=== PATIENT | female | born 1980 | race American Indian/Alaskan Native ===

== ENCOUNTER 2017-09-26 11:29 | Emergency (ER) | payer OTHER ==
[2017-09-26 12:34] LABS: Basophils % (Auto) 0.5 % (0.0-1.8); Eosinophils % (Auto) 0.6 % (0.0-4.3); Hematocrit 34.5 % (30.3-42.9); Hemoglobin 10.8 gm/dl (10.1-14.3); Lymphocytes % (Auto) 38.3 % (13.4-35.0); Mean Corpuscular HGB Conc 31 % (30-34); Mean Corpuscular Volume 78 fl (79-97); Monocytes # (Auto) 0.6 K/mm3 (0.0-0.8); Monocytes % (Auto) 12.1 % (0.0-7.3); Platelet Count 240 K/mm3 (140-440); Red Blood Count 4.42 M/mm3 (3.65-5.03); Red Cell Distribution Width 15.4 % (13.2-15.2)
[2017-09-26 12:40] LABS: Mean Corpuscular Hemoglobin 25 pg (28-32)
[2017-09-26 13:03] LABS: Bacteria,Urine 1+ /HPF (Negative); Bilirubin,Urine NEG (Negative); Blood,Urine LG (Negative); Mucus,Urine 3+ /HPF; Nitrite,Urine NEG (Negative); Urobilinogen,Urine < 2.0 mg/dL (<2.0)
[2017-09-26 13:13] LABS: Color,Urine Red (Yellow); RBC,Urine > 182.0 /HPF (0.0-6.0)
[2017-09-26] MEDS ORDERED: TORADOL IM ONE (13:23)
--- NOTE | 2017-09-26 15:23 | Ultrasound Report ---
FINAL REPORT PROCEDURE: US PELVIC COMPLETE TECHNIQUE: Real-time transabdominal sonography in multiple planes of pelvis was performed with image documentation. This examination was performed without Doppler. Vascular abnormalities, including ovarian torsion, will not be detectable without Doppler evaluation. CPT 62824 HISTORY: heavy vag bleeding COMPARISON: No prior studies are available for comparison. FINDINGS: UTERUS Size: 10.1 cm. Endometrial thickness: 11 mm. Complex fluid filled endometrial and endocervical canal.. Heterogeneous mass in the endocervical canal measures 5.2 x 1.4 centimeters possible clot. Orientation: anteverted. Cervix: Normal. Fibroids/masses: None. RIGHT Ovary: 3.7 x 2.6 cm. Appearance: Normal flow. 2.1 centimeter cyst right ovary. LEFT Ovary: 6.0 x 5.8 cm including a 4.2 centimeter cystic mass in the left adnexa.. Appearance: Normal. Pelvic fluid: None. Other: None. IMPRESSION: Endometrial endocervical chronic hemorrhage suspected with retained products of conception not entirely excludable.. Nonspecific cystic changes of the ovaries left greater than right. Please see operational risk consultant trans vaginal study
--- NOTE | 2017-09-26 15:26 | Ultrasound Report ---
FINAL REPORT PROCEDURE: US TRANSVAGINAL TECHNIQUE: Real-time transvaginal sonography in multiple planes of the pelvis was performed with image documentation. This examination was performed without Doppler. Vascular abnormalities, including ovarian torsion, will not be detectable without Doppler evaluation. CPT 24786 HISTORY: heavy vag bleeding COMPARISON: Pelvic study today FINDINGS: UTERUS Size: 10.1 cm. Endometrial thickness: 11 mm. Complex fluid filled endometrial and endocervical canal likely blood products. 5.2 x 1.4 centimeter heterogeneous endo mass or collection likely accumulation of blood breakdown products lower endo uterine segment, however indeterminate.. Orientation: anteverted. Cervix: Normal. Fibroids/masses: None. RIGHT Ovary: 3.7 x 2.6 cm. Appearance: Normal flow right ovary. 2.1 centimeter cyst right ovary without hypervascular features. LEFT Ovary: 6.0 x 5.8 cm including a 4.2 centimeter cystic mass left ovary without hypervascularity. Appearance: Normal left ovary. Pelvic fluid: None. Other: None. IMPRESSION: Endometrial and endocervical blood breakdown products. Indeterminate cystic changes of the ovaries as above more dominant on the left. No ovarian torsion seen. No free-fluid at this time. Followup is advised.
--- NOTE | 2017-09-26 16:07 | Emergency Department Report ---
ED Female HPI - General Chief complaint: Vaginal Bleeding Stated complaint: HEAVY VAGINAL BLEEDING Time Seen by Provider: 09/26/17 13:04 Source: patient Mode of arrival: Ambulatory Limitations: No Limitations - History of Present Illness MD Complaint: vaginal bleeding Onset/Timin -: days(s) Location: suprapubic Radiation: non-radiating Severity: moderate Severity scale (0 -10): 5 Quality: cramping Consistency: intermittent Improves with: none Worsens with: none Associated Symptoms: denies other symptoms (patient states that when she urinates large clots and pushed through the vagina. Patient states she has never had a period this heavy before). denies: vaginal discharge - Related Data Previous Rx's Medication Instructions Recorded Last Taken Type Ibuprofen [Motrin] 800 mg PO Q8HR PRN #20 tablet 09/26/17 Unknown Rx medroxyPROGESTERone ACETATE 10 mg PO QDAY #7 tablet 09/26/17 Unknown Rx [Provera] Allergies Allergy/AdvReac Type Severity Reaction Status Date / Time No Known Allergies Allergy Verified 09/26/17 11:43 ED Review of Systems ROS: Stated complaint: HEAVY VAGINAL BLEEDING Other details as noted in HPI Comment: All other systems reviewed and negative ED Past Medical Hx - Past Medical History Previous Medical History?: No - Surgical History Past Surgical History?: Yes Additional Surgical History: 4 c-sections - Social History Smoking Status: Never Smoker Substance Use Type: None - Medications Home Medications: Home Medications Medication Instructions Recorded Confirmed Last Taken Type Ibuprofen [Motrin] 800 mg PO Q8HR PRN #20 tablet 09/26/17 Unknown Rx medroxyPROGESTERone ACETATE 10 mg PO QDAY #7 tablet 09/26/17 Unknown Rx [Provera] ED Physical Exam - General Limitations: No Limitations General appearance: alert, in no apparent distress - Head Head exam: Present: atraumatic, normocephalic - Eye Eye exam: Present: normal appearance - ENT ENT exam: Present: mucous membranes moist - Neck Neck exam: Present: normal inspection - Respiratory Respiratory exam: Present: normal lung sounds bilaterally. Absent: respiratory distress - Cardiovascular Cardiovascular Exam: Present: regular rate, normal rhythm. Absent: systolic murmur, diastolic murmur, rubs, gallop - GI/Abdominal GI/Abdominal exam: Present: soft, normal bowel sounds - Extremities Exam Extremities exam: Present: normal inspection - Back Exam Back exam: Present: normal inspection - Neurological Exam Neurological exam: Present: alert, oriented X3 - Psychiatric Psychiatric exam: Present: normal affect, normal mood - Skin Skin exam: Present: warm, dry, intact, normal color. Absent: rash ED Course Vital Signs 09/26/17 11:40 Temperature 98.3 F Pulse Rate 83 Respiratory 16 Rate Blood Pressure 114/68 O2 Sat by Pulse 100 Oximetry ED Medical Decision Making - Lab Data Result diagrams: 09/26/17 12:18 - Radiology Data Radiology results: report reviewed Ultrasound transvaginal shows bilateral ovarian cysts and blood products in the uterus Critical care attestation.: If time is entered above; I have spent that time in minutes in the direct care of this critically ill patient, excluding procedure time. ED Disposition Clinical Impression: DUB (dysfunctional uterine bleeding), Ovarian cyst Disposition: DC- TO HOME OR SELFCARE Is pt being admited?: No Does the pt Need Aspirin: No Condition: Stable Instructions: Dysfunctional Uterine Bleeding (ED), Ovarian Cyst (ED) Prescriptions: Ibuprofen [Motrin] 800 mg PO Q8HR PRN #20 tablet PRN Reason: Pain medroxyPROGESTERone ACETATE [Provera] 10 mg PO QDAY #7 tablet Referrals: PRIMARY CARE, [Primary Care Provider] - 3-5 Days
[2017-09-26 16:28] VITALS: BP 109/71
== END 2017-09-26 16:27 | disposition home or self-care (01) ==
LOC: ED 11:29
DX: N83.202 Unspecified ovarian cyst, left side (principal); N83.201 Unspecified ovarian cyst, right side
CPT/HCPCS: 36415; 76830; 76856; 81001; 84702; 85025; 86850; 86900; 86901; 96372; 99284; J1885

== ENCOUNTER 2020-09-14 20:36 | Emergency (ER) | payer OTHER ==
[2020-09-14 21:02] VITALS: BP 118/74
[2020-09-14 21:20] LABS: Basophils % (Auto) 0.6 % (0.0-1.8); Eosinophils # (Auto) 0.1 K/mm3 (0.0-0.4); Eosinophils % (Auto) 0.7 % (0.0-4.3); Hematocrit 26.5 % (30.3-42.9); Hemoglobin 8.6 gm/dl (10.1-14.3); Lymphocytes # (Auto) 2.9 K/mm3 (1.2-5.4); Lymphocytes % (Auto) 41.3 % (13.4-35.0); Mean Corpuscular HGB Conc 32 % (30-34); Mean Corpuscular Volume 77 fl (79-97); Monocytes # (Auto) 0.6 K/mm3 (0.0-0.8); Monocytes % (Auto) 8.6 % (0.0-7.3); Platelet Count 293 K/mm3 (140-440); Red Blood Count 3.42 M/mm3 (3.65-5.03); Red Cell Distribution Width 16.3 % (13.2-15.2)
[2020-09-14] MEDS ORDERED: SODIUM CHLORIDE 0.9% 1000 ML 1,000 ML IV ONE (22:49)
--- NOTE | 2020-09-14 23:32 | Emergency Department Report ---
ED Female HPI - General Chief complaint: Vaginal Bleeding Stated complaint: BLEEDING,TIREDNESS,DIZZY Time Seen by Provider: 09/14/20 22:44 Source: patient Mode of arrival: Ambulatory Limitations: No Limitations - History of Present Illness Initial comments: Patient is a 40-year-old female who is presenting with a little over a week of vaginal bleeding. Patient states that she was slightly late with her menses this month and is now having heavier menses than normal. States she is going through approximately 6 pads per day. Patient states she has mild dizziness with standing. She went to urgent care prior to arrival and apparently her hemoglobin was 7.4. She was given 1 dose of ferrous sulfate. Patient sent here for further evaluation. Patient denies any abdominal pain. She states she normally has regular menses but has had one episode where she was this heavy approximately 3 years ago. She denies any chest pain or shortness of breath. - Related Data Previous Rx's Medication Instructions Recorded Last Taken Type Ibuprofen [Motrin] 800 mg PO Q8HR PRN #20 tablet 09/26/17 Unknown Rx medroxyPROGESTERone ACETATE 10 mg PO QDAY #7 tablet 09/26/17 Unknown Rx [Provera] Docusate Sodium [Colace] 100 mg PO BID #30 capsule 09/14/20 Unknown Rx Ferrous Sulfate [Ferrous Sulfate 324 mg PO TID #21 tablet. 09/14/20 Unknown Rx 324 MG] Ibuprofen [Motrin 800 MG tab] 800 mg PO Q8HR PRN #14 tablet 09/14/20 Unknown Rx medroxyPROGESTERone ACETATE 10 mg PO DAILY #7 tablet 09/14/20 Unknown Rx [Provera] Allergies Allergy/AdvReac Type Severity Reaction Status Date / Time No Known Allergies Allergy Verified 09/26/17 11:43 ED Review of Systems ROS: Stated complaint: BLEEDING,TIREDNESS,DIZZY Other details as noted in HPI Comment: All other systems reviewed and negative ED Past Medical Hx - Past Medical History Previous Medical History?: No - Surgical History Past Surgical History?: Yes Additional Surgical History: 4 c-sections - Social History Smoking Status: Never Smoker Substance Use Type: None - Medications Home Medications: Home Medications Medication Instructions Recorded Confirmed Last Taken Type Ibuprofen [Motrin] 800 mg PO Q8HR PRN #20 tablet 09/26/17 Unknown Rx medroxyPROGESTERone ACETATE 10 mg PO QDAY #7 tablet 09/26/17 Unknown Rx [Provera] Docusate Sodium [Colace] 100 mg PO BID #30 capsule 09/14/20 Unknown Rx Ferrous Sulfate [Ferrous Sulfate 324 mg PO TID #21 tablet. 09/14/20 Unknown Rx 324 MG] Ibuprofen [Motrin 800 MG tab] 800 mg PO Q8HR PRN #14 tablet 09/14/20 Unknown Rx medroxyPROGESTERone ACETATE 10 mg PO DAILY #7 tablet 09/14/20 Unknown Rx [Provera] ED Physical Exam - General Limitations: No Limitations General appearance: alert, in no apparent distress - Head Head exam: Present: atraumatic, normocephalic - Eye Eye exam: Present: normal appearance, PERRL, EOMI - ENT ENT exam: Present: normal orophraynx, mucous membranes moist - Neck Neck exam: Present: normal inspection - Respiratory Respiratory exam: Present: normal lung sounds bilaterally. Absent: respiratory distress, wheezes, rales, rhonchi - Cardiovascular Cardiovascular Exam: Present: regular rate, normal rhythm, normal heart sounds. Absent: systolic murmur, diastolic murmur, rubs, gallop - GI/Abdominal GI/Abdominal exam: Present: soft, normal bowel sounds. Absent: distended, tenderness, guarding - Extremities Exam Extremities exam: Present: normal inspection - Back Exam Back exam: Present: normal inspection - Neurological Exam Neurological exam: Present: alert, oriented X3 - Psychiatric Psychiatric exam: Present: normal affect, normal mood - Skin Skin exam: Present: warm, dry, intact, normal color. Absent: rash ED Course Vital Signs 09/14/20 20:55 Temperature 97.8 F Pulse Rate 80 Respiratory 18 Rate Blood Pressure 118/74 O2 Sat by Pulse 100 Oximetry ED Medical Decision Making - Lab Data Result diagrams: 09/14/20 21:04 Lab Results 09/14/20 09/14/20 09/14/20 Range/Units 21:04 21:04 21:04 WBC 7.1 (4.5-11.0) K/mm3 RBC 3.42 L (3.65-5.03) M/mm3 Hgb 8.6 L (10.1-14.3) gm/dl Hct 26.5 L (30.3-42.9) % MCV 77 L (79-97) fl MCH 25 L (28-32) pg MCHC 32 (30-34) % RDW 16.3 H (13.2-15.2) % Plt Count 293 (140-440) K/mm3 Lymph % (Auto) 41.3 H (13.4-35.0) % [place] % (Auto) 8.6 H (0.0-7.3) % Eos % (Auto) 0.7 (0.0-4.3) % Baso % (Auto) 0.6 (0.0-1.8) % Lymph # (Auto) 2.9 (1.2-5.4) K/mm3 [place] # (Auto) 0.6 (0.0-0.8) K/mm3 Eos # (Auto) 0.1 (0.0-0.4) K/mm3 Baso # (Auto) 0.0 (0.0-0.1) K/mm3 Seg Neutrophils % 48.8 (40.0-70.0) % Seg Neutrophils # 3.4 (1.8-7.7) K/mm3 HCG, Quant < 2 (0-4) mIU/mL Blood Type O POSITIVE - Medical Decision Making Patient's hemoglobin is greater than 7. Patient be started on Provera to see if we can slow her menses down. She is to take iron supplement 3 times daily. Prescription for Colace has been given as well. Patient to be given follow-up with WEALTH MANAGEMENT MANAGER. Patient given a liter of fluid for her dizziness and fluid loss. Critical care attestation.: If time is entered above; I have spent that time in minutes in the direct care of this critically ill patient, excluding procedure time. ED Disposition Clinical Impression: Dysfunctional uterine bleeding, Symptomatic anemia Disposition: DC- TO HOME OR SELFCARE Is pt being admited?: No Does the pt Need Aspirin: No Condition: Stable Instructions: Abnormal Uterine Bleeding Referrals: ANDREW RODARTE JR, MD [Staff Physician] - 3-5 Days Time of Disposition: 23:32
[2020-09-14] MEDS ORDERED: medroxyPROGESTERone ACETATE 5 MG TAB PO SCH ×2 (23:51→23:56)
[2020-09-15] MEDS ORDERED: medroxyPROGESTERone ACETATE 5 MG TAB PO SCH (10:00)
== END 2020-09-15 01:09 | disposition home or self-care (01) ==
LOC: ED 20:36
DX: N93.8 Other specified abnormal uterine and vaginal bleeding (principal); D64.89 Other specified anemias; Z98.890 Other specified postprocedural states; Z79.1 Long term (current) use of non-steroidal anti-inflammatories (NSAID); Z79.899 Other long term (current) drug therapy
CPT/HCPCS: 36415; 84702; 85025; 86900; 86901; 96360; 99283; J7030

== ENCOUNTER 2020-10-03 18:30 | Emergency (ER) | payer OTHER ==
[2020-10-03 18:43] VITALS: BP 126/80
--- NOTE | 2020-10-03 18:54 | Emergency Department Report ---
Blank Doc - Documentation Documentation: This is a 40-year-old female that presents with vaginal bleeding and was sent by AMUSEMENT PARK WORKER for hemoglobin 6.8. 1- This initial assessment/diagnostic orders/clinical plan/ treatment(s) is/are subject to change based on pt's health status, clinical progression and re- assessment by fellow clinical providers in the ED. Further treatment and workup at subsequent clinical provers discretion. Patient/guardians urged not to elope from ED as their condition may be serious if not clinically assessed and managed. 2-labs 3-UA
[2020-10-03 19:10] LABS: Basophils # (Auto) 0.1 K/mm3 (0.0-0.1); Basophils % (Auto) 0.9 % (0.0-1.8); Eosinophils # (Auto) 0.1 K/mm3 (0.0-0.4); Eosinophils % (Auto) 0.8 % (0.0-4.3); Hematocrit 24.4 % (30.3-42.9); Hemoglobin 7.7 gm/dl (10.1-14.3); Lymphocytes # (Auto) 2.5 K/mm3 (1.2-5.4); Lymphocytes % (Auto) 38.3 % (13.4-35.0); Mean Corpuscular HGB Conc 31 % (30-34); Mean Corpuscular Volume 79 fl (79-97); Monocytes # (Auto) 0.5 K/mm3 (0.0-0.8); Monocytes % (Auto) 8.4 % (0.0-7.3); Platelet Count 307 K/mm3 (140-440); Red Blood Count 3.09 M/mm3 (3.65-5.03)
[2020-10-03 19:12] LABS: Red Cell Distribution Width 20.1 % (13.2-15.2)
[2020-10-03 19:31] LABS: Alanine Aminotransferase 14 units/L (7-56); Blood Urea Nitrogen 11 mg/dL (7-17); Calcium 8.6 mg/dL (8.4-10.2); Hemolysis Index 6
[2020-10-03 19:54] LABS: BUN/Creatinine Ratio 22
[2020-10-03 20:53] LABS: INR 0.94 (0.87-1.13); Partial Thromboplastin Time 27.6 Sec. (24.2-36.6)
--- NOTE | 2020-10-03 20:54 | Emergency Department Report ---
ED Female HPI - General Chief complaint: Vaginal Bleeding Stated complaint: BLOOD LOW Time Seen by Provider: 10/03/20 18:52 Source: patient Mode of arrival: Ambulatory Limitations: No Limitations - History of Present Illness Initial comments: This is a 40-year-old female with no prior medical history who presents the ED complaining of vaginal bleeding that initially began on September 05 and lasted 4 days. Patient states she was evaluated and was discharged home with Provera which stopped the bleeding for about 2 weeks. Patient states that 2 days ago bleeding continued, patient states that she noticed some clotting so she went to the urgent care today and was told that her hemoglobin was 6.8 and she needed to come to the emergency room as soon as possible. Patient does note that she has had history of the same symptom with vaginal bleed in 2018 which resolved on its own. Patient denies fever/chills/nausea vomiting/abdominal pain/pelvic pain/dysuria. MD Complaint: vaginal bleeding - Related Data Previous Rx's Medication Instructions Recorded Last Taken Type Ibuprofen [Motrin] 800 mg PO Q8HR PRN #20 tablet 09/26/17 Unknown Rx Docusate Sodium [Colace] 100 mg PO BID #30 capsule 09/14/20 Unknown Rx Ibuprofen [Motrin 800 MG tab] 800 mg PO Q8HR PRN #14 tablet 09/14/20 Unknown Rx medroxyPROGESTERone ACETATE 10 mg PO DAILY #7 tablet 09/14/20 Unknown Rx [Provera] Ferrous Sulfate [Ferrous Sulfate 324 mg PO TID #90 tablet. 10/03/20 Unknown Rx 324 MG] medroxyPROGESTERone ACETATE 10 mg PO QDAY #7 tablet 10/03/20 Unknown Rx [Provera] Allergies Allergy/AdvReac Type Severity Reaction Status Date / Time No Known Allergies Allergy Verified 09/26/17 11:43 ED Review of Systems ROS: Stated complaint: BLOOD LOW Other details as noted in HPI Comment: All other systems reviewed and negative ED Past Medical Hx - Past Medical History Previous Medical History?: Yes Additional medical history: Uterine fibroids - Surgical History Additional Surgical History: 4 c-sections - Social History Smoking Status: Never Smoker Substance Use Type: None - Medications Home Medications: Home Medications Medication Instructions Recorded Confirmed Last Taken Type Ibuprofen [Motrin] 800 mg PO Q8HR PRN #20 tablet 09/26/17 Unknown Rx Docusate Sodium [Colace] 100 mg PO BID #30 capsule 09/14/20 Unknown Rx Ibuprofen [Motrin 800 MG tab] 800 mg PO Q8HR PRN #14 tablet 09/14/20 Unknown Rx medroxyPROGESTERone ACETATE 10 mg PO DAILY #7 tablet 09/14/20 Unknown Rx [Provera] Ferrous Sulfate [Ferrous Sulfate 324 mg PO TID #90 tablet. 10/03/20 Unknown Rx 324 MG] medroxyPROGESTERone ACETATE 10 mg PO QDAY #7 tablet 10/03/20 Unknown Rx [Provera] ED Physical Exam - General Limitations: No Limitations General appearance: alert, in no apparent distress - Head Head exam: Present: atraumatic, normocephalic - Eye Eye exam: Present: normal appearance - ENT ENT exam: Present: mucous membranes moist - Neck Neck exam: Present: normal inspection - Respiratory Respiratory exam: Present: normal lung sounds bilaterally. Absent: respiratory distress - Cardiovascular Cardiovascular Exam: Present: regular rate, normal rhythm. Absent: systolic murmur, diastolic murmur, rubs, gallop - GI/Abdominal GI/Abdominal exam: Present: soft, normal bowel sounds - Extremities Exam Extremities exam: Present: normal inspection - Back Exam Back exam: Present: normal inspection - Neurological Exam Neurological exam: Present: alert, oriented X3 - Psychiatric Psychiatric exam: Present: normal affect, normal mood - Skin Skin exam: Present: warm, dry, intact, normal color. Absent: rash ED Course Vital Signs 10/03/20 18:42 Temperature 98.2 F Pulse Rate 88 Respiratory 16 Rate Blood Pressure 126/80 [Right] O2 Sat by Pulse 100 Oximetry ED Medical Decision Making - Lab Data Result diagrams: 10/03/20 18:58 10/03/20 18:58 Laboratory Last Values WBC 6.6 K/mm3 (4.5-11.0) 10/03/20 18:58 RBC 3.09 M/mm3 (3.65-5.03) L 10/03/20 18:58 Hgb 7.7 gm/dl (10.1-14.3) L 10/03/20 18:58 Hct 24.4 % (30.3-42.9) L 10/03/20 18:58 MCV 79 fl (79-97) 10/03/20 18:58 MCH 25 pg (28-32) L 10/03/20 18:58 MCHC 31 % (30-34) 10/03/20 18:58 RDW 20.1 % (13.2-15.2) H 10/03/20 18:58 Plt Count 307 K/mm3 (140-440) 10/03/20 18:58 Lymph % (Auto) 38.3 % (13.4-35.0) H 10/03/20 18:58 [place] % (Auto) 8.4 % (0.0-7.3) H 10/03/20 18:58 Eos % (Auto) 0.8 % (0.0-4.3) 10/03/20 18:58 Baso % (Auto) 0.9 % (0.0-1.8) 10/03/20 18:58 Lymph # (Auto) 2.5 K/mm3 (1.2-5.4) 10/03/20 18:58 [place] # (Auto) 0.5 K/mm3 (0.0-0.8) 10/03/20 18:58 Eos # (Auto) 0.1 K/mm3 (0.0-0.4) 10/03/20 18:58 Baso # (Auto) 0.1 K/mm3 (0.0-0.1) 10/03/20 18:58 Seg Neutrophils % 51.6 % (40.0-70.0) 10/03/20 18:58 Seg Neutrophils # 3.4 K/mm3 (1.8-7.7) 10/03/20 18:58 PT 12.5 Sec. (12.2-14.9) 10/03/20 20:26 INR 0.94 (0.87-1.13) 10/03/20 20:26 APTT 27.6 Sec. (24.2-36.6) 10/03/20 20:26 Sodium 139 mmol/L (137-145) 10/03/20 18:58 Potassium 3.6 mmol/L (3.6-5.0) 10/03/20 18:58 Chloride 104.0 mmol/L (98-107) 10/03/20 18:58 Carbon Dioxide 31 mmol/L (22-30) H 10/03/20 18:58 Anion Gap 8 mmol/L 10/03/20 18:58 BUN 11 mg/dL (7-17) 10/03/20 18:58 Creatinine 0.5 mg/dL (0.6-1.2) L 10/03/20 18:58 Estimated GFR > 60 ml/min 10/03/20 18:58 BUN/Creatinine Ratio 22 % 10/03/20 18:58 Glucose 127 mg/dL (65-100) H 10/03/20 18:58 Calcium 8.6 mg/dL (8.4-10.2) 10/03/20 18:58 Total Bilirubin < 0.20 mg/dL (0.1-1.2) 10/03/20 18:58 AST 21 units/L (5-40) 10/03/20 18:58 ALT 14 units/L (7-56) 10/03/20 18:58 Alkaline Phosphatase 65 units/L (35-129) 10/03/20 18:58 Total Protein 7.0 g/dL (6.3-8.2) 10/03/20 18:58 Albumin 4.0 g/dL (3.9-5) 10/03/20 18:58 Albumin/Globulin Ratio 1.3 % 10/03/20 18:58 HCG, Qual Negative (Negative) 10/03/20 18:58 Urine Color Yellow (Yellow) 10/03/20 Unknown Urine Turbidity Clear (Clear) 10/03/20 Unknown Urine pH 6.0 (5.0-7.0) 10/03/20 Unknown Ur Specific [place] 1.019 (1.003-1.030) 10/03/20 Unknown Urine Protein <15 mg/dl mg/dL (Negative) 10/03/20 Unknown Urine Glucose (UA) Neg mg/dL (Negative) 10/03/20 Unknown Urine Ketones Neg mg/dL (Negative) 10/03/20 Unknown Urine Blood Lg (Negative) 10/03/20 Unknown Urine Nitrite Neg (Negative) 10/03/20 Unknown Urine Bilirubin Neg (Negative) 10/03/20 Unknown Urine Urobilinogen < 2.0 mg/dL (<2.0) 10/03/20 Unknown Ur Leukocyte Esterase Neg (Negative) 10/03/20 Unknown Urine WBC (Auto) 1.0 /HPF (0.0-6.0) 10/03/20 Unknown Urine RBC (Auto) 116.0 /HPF (0.0-6.0) 10/03/20 Unknown U Epithel Cells (Auto) 1.0 /HPF (0-13.0) 10/03/20 Unknown Urine Mucus 2+ /HPF 10/03/20 Unknown - Radiology Data Radiology results: report reviewed, image reviewed - Medical Decision Making This 40-year-old female presented to the ED with dysfunctional uterine bleeding. All labs are within normal limits. Mildly low H&H suggestive of anemia most likely due to menorrhagia Discussed with patient to follow-up with SYSTEMS QA ANALYST for further management. I did discuss with patient if bleeding worsens and she starts to have new or worsening symptoms she will return to the ED immediately. Patient was in no acute or respiratory distress. Ultrasound shows no acute findings. Discussed all findings with the patient. Discussed with patient to follow-up with SYSTEMS QA ANALYST in 2 to 3 days. Patient states she understands instructions. Patient had no symptoms throughout ED stay. Critical care attestation.: If time is entered above; I have spent that time in minutes in the direct care of this critically ill patient, excluding procedure time. ED Disposition Clinical Impression: Dysfunctional uterine bleeding, Menorrhagia, Anemia Disposition: - TO HOME OR SELFCARE Is pt being admited?: No Does the pt Need Aspirin: No Condition: Stable Instructions: Abnormal Uterine Bleeding, Metrorrhagia, [id number], Dysfunctional Uterine Bleeding Additional Instructions: Make sure to follow up with the primary care physician as discussed. Take all your medications as you've been prescribed. If you have any worsening symptoms or develop new symptoms please return to ED immediately. Prescriptions: Ferrous Sulfate [Ferrous Sulfate 324 MG] 324 mg PO TID #90 tablet. medroxyPROGESTERone ACETATE [Provera] 10 mg PO QDAY #7 tablet Referrals: PRIMARY CARE, [Primary Care Provider] - 3-5 Days FRANC SANCHEZ MD [Staff Physician] - 3-5 Days LNAETTE PERDUE MD [Staff Physician] - 3-5 Days TAMIKO BETTENCOURT MD [Staff Physician] - 3-5 Days Forms: Accompanied Note, Work/School Release Form(ED) Time of Disposition: 22:31
[2020-10-03 21:51] LABS: Bilirubin,Urine NEG (Negative); Blood,Urine LG (Negative); Color,Urine Yellow (Yellow); Mucus,Urine 2+ /HPF; Protein,Urine <15 mg/dL mg/dL (Negative); Urobilinogen,Urine < 2.0 mg/dL (<2.0)
--- NOTE | 2020-10-03 22:08 | Ultrasound Report ---
ULTRASOUND PELVIS INDICATION / CLINICAL INFORMATION: vag bleed, pelv pain. TECHNIQUE: Transabdominal and Transvaginal. Duplex Color Doppler used: Yes. COMPARISON: 09/26/2017 FINDINGS: UTERUS: 10.0 x 5.6 x 8.4 cm with satisfactory sonographic appearance. Endometrial thickness is 13 mm in this premenopausal patient. RIGHT ADNEXA: No significant ovarian cyst or mass. Normal color Doppler blood flow. LEFT ADNEXA: Not visualized. URINARY BLADDER: No significant abnormality. FREE FLUID: Small amount of free fluid in the cul-de-sac. ADDITIONAL FINDINGS: None. IMPRESSION: 1. Satisfactory sonographic appearance of the uterus and right ovary. Left ovary not visualized. 2. Small amount of pelvic free fluid, likely physiologic. Signer Name: Harvey Lai MD Signed: 10/03/2020 10:04 PM Workstation Name: [id number]
== END 2020-10-03 22:45 | disposition home or self-care (01) ==
LOC: ED 18:30
DX: N92.0 Excessive and frequent menstruation with regular cycle (principal); N93.8 Other specified abnormal uterine and vaginal bleeding; D64.9 Anemia, unspecified; Z98.890 Other specified postprocedural states; Z79.899 Other long term (current) drug therapy
CPT/HCPCS: 36415; 76830; 76856; 80053; 81001; 84703; 85025; 85610; 85730